=== PATIENT | female | born 1985 | race Caucasian/White ===

== ENCOUNTER 2018-04-03 08:07 | Emergency (ER) | payer OTHER ==
[~2018-04-03] VITALS: Ht 160 cm; Wt 65.8 kg
[2018-04-03 08:26] LABS: URINE BILIRUBIN NEGATIVE (Negative); URINE BLOOD NEGATIVE (Negative); URINE CLARITY CLEAR; URINE COLOR YELLOW; URINE GLUCOSE-RANDOM NEGATIVE (Negative); URINE KETONES NEGATIVE (Negative); URINE LEUKOCYTES-REFLEX NEGATIVE (Negative); URINE NITRITE-REFLEX NEGATIVE (Negative); URINE PROTEIN NEGATIVE (Negative); URINE SPECIFIC GRAVITY 1.025 (1.005-1.030); URINE UROBILINOGEN 0.2 E.U./dl (0.2-1.0)
[2018-04-03 08:36] LABS: ABSOLUTE BASOPHILS 0.1 thou/uL (0.0-0.2); ABSOLUTE EOSINOPHILS 0.2 thou/uL (0.0-0.7); ABSOLUTE MONOCYTES 0.4 thou/uL (0.0-1.2); ABSOLUTE NEUTROPHILS 4.6 thou/uL (1.6-8.1); BASOPHILS 1.4 %; EOSINOPHILS 2.1 %; HEMOGLOBIN 15.4 gm/dL (12.0-15.0); LYMPHOCYTES 35.9 %; MCHC 33.4 g/dL (28.0-37.0); MCV 89.7 fL (80.0-100.0); MONOCYTES 4.7 %; NUCLEATED RBCS 0 /100WBC; PLATELET COUNT* 276 thou/uL (150-400); POLYS 55.9 %; RBC 5.13 mil/uL (4.20-5.00); RDW-CV 13.4 % (10.5-14.5); WBC 8.2 thou/uL (4.0-11.0)
[2018-04-03 08:45] LABS: CALCIUM 8.8 mg/dL (8.5-10.1); CREATININE 0.7 mg/dL (0.6-1.3); POTASSIUM 3.8 mmol/L (3.5-5.1)
[2018-04-03 08:49] LABS: ALBUMIN 3.7 g/dL (3.4-5.0); TOTAL BILIRUBIN 0.3 mg/dL (<0.1-1.0); TOTAL PROTEIN 7.1 g/dL (6.4-8.2)
[2018-04-03] MEDS ORDERED: BACTRIM DS TAB1 EACH PO (09:20)
[2018-04-03] MEDS ORDERED: BENTYL 20 MG TA20 M1 PO (09:20)
[2018-04-03] MEDS ORDERED: ZOFRAN4 MG PO (09:20)
[2018-04-03 09:22] VITALS: BP 102/48
== END 2018-04-03 09:23 | disposition home or self-care (01) ==
LOC: M.ERS 08:07
PROVIDERS: Emergency Medicine Emergency Medical Services
DX: R19.7 Diarrhea, unspecified (principal); R11.2 Nausea with vomiting, unspecified; E05.90 Thyrotoxicosis, unspecified without thyrotoxic crisis or storm